=== PATIENT | female | born 1955 | race Caucasian/White ===

== ENCOUNTER 2019-10-20 09:14 | Inpatient (IN) | payer OTHER ==
[~2019-10-20] VITALS: Ht 147.3 cm; Wt 81.6 kg
[2019-10-20] MEDS ORDERED: NORVASC5 MG PO (09:43)
[2019-10-20] MEDS ORDERED: ENALAPRIL-HCTZ1 EACH PO (09:43)
[2019-11-11] MEDS ORDERED: KALEXATE15 GM PO (16:06)
[2019-11-11] MEDS ORDERED: VITAMIN B-122500 MCG SL (16:07)
[2019-11-11] MEDS ORDERED: CHOLESTYRAMINE P4 GM PO (16:07)
[2019-11-11] MEDS ORDERED: PROTONIX40 MG PO (16:08)
[2019-11-11] MEDS ORDERED: INTESTINEX680 M1 PO (16:08)
== END 2019-11-11 18:32 | disposition home or self-care (01) | DRG 755 ==
LOC: ER 09:14 → MEDI 17:50 → SEC-K 17:50 → MEDI 18:24
PROVIDERS: ADMIT Internal Medicine; ATTEND Internal Medicine
PROC: 30233N1 Transfusion of Nonautologous Red Blood Cells into Peripheral Vein, Percutaneous Approach (ICD-10-PCS; 2019-10-20)
PROC: 0W9G3ZX Drainage of Peritoneal Cavity, Percutaneous Approach, Diagnostic (ICD-10-PCS; 2019-10-20)
PROC: 3E0F7SF Introduction of Other Gas into Respiratory Tract, Via Natural or Artificial Opening (ICD-10-PCS; 2019-10-20)
PROC: 0W2BX0Z Change Drainage Device in Left Pleural Cavity, External Approach (ICD-10-PCS; 2019-10-20)
PROC: 4A12X4Z Monitoring of Cardiac Electrical Activity, External Approach (ICD-10-PCS; 2019-10-20)
PROC: BW21ZZZ Computerized Tomography (CT Scan) of Abdomen and Pelvis (ICD-10-PCS; 2019-10-20)
PROC: 0W9B30Z Drainage of Left Pleural Cavity with Drainage Device, Percutaneous Approach (ICD-10-PCS; principal; 2019-10-21)
PROC: 4A033R1 Measurement of Arterial Saturation, Peripheral, Percutaneous Approach (ICD-10-PCS; 2019-10-21)
PROC: BT43ZZZ Ultrasonography of Bilateral Kidneys (ICD-10-PCS; 2019-10-21)
DX: C76.3 Malignant neoplasm of pelvis (principal); J91.0 Malignant pleural effusion; C78.7 Secondary malignant neoplasm of liver and intrahepatic bile duct; R18.0 Malignant ascites; D64.9 Anemia, unspecified; R09.02 Hypoxemia; E87.5 Hyperkalemia; Z20.828 Contact with and (suspected) exposure to other viral communicable diseases; Z74.01 Bed confinement status; N18.9 Chronic kidney disease, unspecified; E88.09 Other disorders of plasma-protein metabolism, not elsewhere classified; I13.10 Hypertensive heart and chronic kidney disease without heart failure, with stage 1 through stage 4 chronic kidney disease, or unspecified chronic kidney disease

== ENCOUNTER 2019-11-16 21:08 | Emergency (ER) | payer OTHER ==
[~2019-11-16] VITALS: Ht 157.5 cm; Wt 68.0 kg
[~2019-11-16 21:08] MED LIST: CHOLESTYRAMINE P4 GM PO; ENALAPRIL-HCTZ1 EACH PO; INTESTINEX680 M1 PO; KALEXATE15 GM PO; NORVASC5 MG PO; PROTONIX40 MG PO; VITAMIN B-122500 MCG SL
== END 2019-11-16 22:33 | disposition home or self-care (01) ==
LOC: ER 21:08
DX: R11.15 Cyclical vomiting syndrome unrelated to migraine (principal); C50.919 Malignant neoplasm of unspecified site of unspecified female breast; C78.7 Secondary malignant neoplasm of liver and intrahepatic bile duct; Z17.0 Estrogen receptor positive status [ER+]